=== PATIENT | male | born 1945 | race Caucasian/White ===

== ENCOUNTER 2025-05-05 10:26 | Emergency (ER) | payer MEDICARE, OTHER, SELFPAY ==
[2025-05-05 10:26] VITALS: BP 129/72; PULSE 86; RESP 14; TEMP 36.2; O2SAT 98; BMI 27.2
--- NOTE | 2025-05-05 10:42 | EX.ED.UPPERE ---
HPI History of Present Illness Chief Complaint: Upper Extremity Injury Informant: patient Narrative Narrative: [id number] presents for evaluation bruising noted to right upper extremity. 3 days ago was trying to start a weed [place] when the next day noted some yellowing up top and bruising. She denies any direct injuries no heavy lifting no tearing issues during the episode. Denies falling on it. He does not take any blood thinners. He states 2 years ago twisted his knee noted swelling to his right leg, and he was worked up with negative DVT studies. Denies any loss of function of the right upper extremity. [facility] Medical History (Updated 05/05/25 @ 10:50 by Kaylee Jang) Arm injury Allergy/AdvReac Type Severity Reaction Status Date / Time Sulfa (Sulfonamide AdvReac ITCH Verified 05/05/25 10:26 Antibiotics) Social History Smoking Status: Unknown if ever smoked ROS ROS ED Constitutional Constitutional ED: Denies fever(s) Cardiovascular Cardiovascular: Denies chest pain Respiratory/Chest Respiratory/Chest: Denies cough Gastrointestinal Gastrointestinal: Denies diarrhea or vomiting Musculoskeletal Musculoskeletal: Reports other Details: Bruising right upper extremity. Integumentary Denies rash or wounds Neurologic Neurologic: Denies weakness EXAM Physical Exam Const Vital Signs: 05/05/25 10:26 Temperature 97.2 F L Temperature Source Temporal Pulse Rate 86 Respiratory Rate 14 Blood Pressure 129/72 H Blood Pressure Mean 91 Pulse Ox 98 Oxygen Delivery Method Room Air Positive well nourished and well developed General Appearance ED: well developed HEENT normocephalic and atraumatic Eyes General Eye ED: Yes normal appearance of both eyes Neck full ROM Resp normal respiratory effort and normal air movement Cardio regular rate and regular rhythm GI soft to palpation Extremity full ROM Extremity Narrative: Right upper extremity: There is bruising to the upper biceps medial aspect. There are some yellowing more proximally. Full range of motion to elbow flexion and shoulder flexion. No defects were noted at the tendons origin or insertion. Soft compartments. Neuro oriented x3 Skin no rashes or lesions noted and no wounds MDM MDM MDM Narrative Medical decision making narrative: Interventions / MDM: Differential diagnosis: Right bicep strain, right biceps ecchymosis Diagnosis considered but do not suspect: No clinical compartment syndrome, no clinical tendon rupture. My EKG interpretation: N/A Imaging independently reviewed and interpreted by myself: N/A External documents reviewed: N/A Test considered but not ordered:N/A ED course: Examination with ecchymosis to upper extremity. Injury from trying to start his weed [place]. Clinically no compartment syndrome or any tendon injuries. Discussed microtears from muscle strain leading to the ecchymosis. No loss of function. No pain. Discussed this should improve with time. Discussed gravity can lead to ecchymosis to the forearm however this should improve with time. Patient reassured. Patient reports his PCP has moved, is trying to get in with a new PCP. I will give him a follow-up. All questions were answered. Re-evaluation: stable Disposition discussed with patient/family/significant other: Patient Case discussed with consulting clinician: N/A This note was generated with [employer] dictation software. It may contain incorrect words, spelling, and punctuation that were not noted in checking the note before signing. Discharge Plan Triage Chief Complaint: Upper Extremity Injury ED Provider: Jhonny Butcher Dx/Rx/DC Orders Clinical Impression: Strain of right biceps, Traumatic ecchymosis of right upper arm Instructions: Bruises (Contusions), ED Muscle Strain, Extremity Primary Care Provider: Care Physician,No Primary Referrals: Radha Love MD [Med Staff - [employer]] - 1-2 Weeks Activity Restrictions/Additional Instructions: Clinically no rupture of your tendons of her upper arm. Muscle strain with microtears leading to your bruising. No current pain. Bruising will improve with time. Did not be concerned if the bruising was down to your forearm. Follow-up with your doctor. Print Language: Palauan Disposition Disposition: Home, Self Care Discharge Date/Time: 05/05/25 11:02
== END 2025-05-05 11:02 | disposition home or self-care (01) ==
LOC: ED 11:01
PROVIDERS: Emergency Provider Emergency Medicine; Visit Provider Emergency Medicine
DX: S46.211A Strain of muscle, fascia and tendon of other parts of biceps, right arm, initial encounter (principal); S40.021A Contusion of right upper arm, initial encounter; W29.3XXA Contact with powered garden and outdoor hand tools and machinery, initial encounter
CPT/HCPCS: 99282

== ENCOUNTER → 2025-10-28 | Outpatient (CLI) | payer MEDICARE, OTHER, SELFPAY ==
[2025-10-28 15:42] LABS: Creatinine, Urine (random) 119.00 mg/dL (39.00-259.00); Microalbumin,Random Urine 34.9 mg/L (<20 mg/L)
[2025-10-28 15:45] LABS: AST(SGOT) 19 U/L (<=37); Alanine Aminotransfer ALT/SGPT 20 U/L (<=46); Albumin, Serum 4.2 g/dL (3.4-4.8); Alkaline Phosphatase 96 U/L (40-129); Anion Gap 10 (5-15); BUN 21 mg/dL (4-19); BUN/Creat Ratio 29.2 RATIO (10-20); Calcium,Total 9.9 mg/dL (7.6-11.0); Carbon Dioxide 26.2 mmol/L (21.0-32.0); Chloride 102 mmol/L (98-108); Cholesterol 153 mg/dL (<=200); Globulin 2.5 g/dL (2.2-4.2); Glucose 118 mg/dL (70-99); Low Density Lipoprotein Calc. 80 mg/dL; PSA,Total - Annual Screen 2.33 ng/mL (0.02-4.00); Potassium 4.7 mmol/L (3.3-5.1); Triglycerides 183 mg/dL; Very Low Density Lipoprotein 37 mg/dL (5-40); cholesterol:hdl ratio screen 3.69
== END | disposition home or self-care (01) ==
LOC: MTLAB 12:55
PROVIDERS: PCP Family Medicine; Referring Provider Family Medicine; Visit Provider Family Medicine
DX: I10 Essential (primary) hypertension (principal); E11.9 Type 2 diabetes mellitus without complications; Z12.5 Encounter for screening for malignant neoplasm of prostate
CPT/HCPCS: 36415; 80053; 80061; 82043; 82570; 83036; 84153; G0103